=== PATIENT | female | born 1975 | race Caucasian/White ===

== ENCOUNTER 2023-10-06 10:19 | Emergency (ER) | payer SELFPAY ==
[2023-10-06 10:23] VITALS: BP 166/99; PULSE 102; TEMP 36.8; O2SAT 98; BMI 33.7
--- NOTE | 2023-10-06 10:34 | PC.NURSE ---
patient here from [place], states that she has had a rash on her left hand for the past month. has attempted natural remedies with no results. states that the rash is very itchy. rash is circular pattern with vesicals. patient also c/o red rash under bilateral breast.
--- NOTE | 2023-10-06 10:39 | ED_ITS ---
HPI HPI - General Adult General Chief complaint: Skin/Abscess/Foreign Body Stated complaint: SKIN IRRITATION, RASH Time Seen by Provider: 10/06/23 10:32 Source: patient Mode of arrival: walk-in History of Present Illness HPI narrative: The patient presented to us with a rash that been going on at least for the last few months, on her left hand she denies any other concerns, she also mentioned that she have this rash just below her breasts bilaterally, both rashes are itchy Related Data Previous Rx's ?Medication ?Instructions ?Recorded clotrimazole 1 % topical cream 1 applic topical BID #30 grams 10/06/23 Allergies Allergy/AdvReac Type Severity Reaction Status Date / Time Sulfa (Sulfonamide Allergy Unknown hives Verified 10/06/23 10:28 Antibiotics) amoxicillin [From Augmentin] Allergy Hives Verified 10/06/23 10:31 clavulanic acid Allergy Hives Verified 10/06/23 10:31 [From Augmentin] diphenhydramine Allergy Hives Verified 10/06/23 10:31 [From Benadryl] latex Allergy Hives Verified 10/06/23 10:31 silk tape Allergy Rash Uncoded 10/06/23 10:31 Opioid HPI Opioid Management Most Recent Opioid Data: No Data to Display Review of Systems ROS Status of ROS 10 or more systems reviewed and unremark able except as noted in history and below Exam Narrative Exam Narrative: Nurses notes and vital signs reviewed and patient is not hypoxic. General: Well-appearing and in no apparent distress. Skin: Warm, dry, no pallor noted. No rash. Head: Normocephalic, atraumatic. Neck: Supple, non-tender. Eye: Pupils are equal, round and EOMI. No scleral icterus. Ears, Nose, Mouth, and Throat: TM are clear, no nasal mucosal hypertrophy. Oral mucosa is moist, no posterior oropharynx erythema, uvula is mid-line Cardiovascular: Regular Rate and Rhythm without murmur, gallop or rub. Respiratory: No accessory muscle use or respiratory distress. Lungs are clear to auscultation, no wheezing, rales or rhonchi Chest Wall: no tenderness Back: No midline thoracic or lumbar vertebral tenderness. No CVA tenderness Musculoskeletal: normal ROM, no calf or popliteal tenderness, no lower extremity edema/swelling GI: Abdomen is soft, non-distended. Normal bowel sounds. No masses appreciated. No tenderness to palpation. No rebound, guarding, or rigidity noted. Neurological: A&O x4. No cranial nerve dysfunction observed. No truncal ataxia. Moves all extremities. Sensation intact. Psychiatric: Cooperative and interactive. Normal mood and affect. Skin examination showed that the patient have on her left hand almost 2 x 3 cm oval rash that is macular The patient also have mild irritation under the breast bilaterally Constitutional Vital Signs, click to edit/add: Last Vital Signs Temp 98.3 F 10/06/23 10:23 Pulse 102 H 10/06/23 10:23 Resp 16 10/06/23 10:23 BP 166/99 H 10/06/23 10:23 Pulse Ox 98 10/06/23 10:23 O2 Del Method Room Air 10/06/23 10:23 Course Vital Signs Vital signs: Vital Signs Temperature 98.3 F 10/06/23 10:23 Pulse Rate 102 H 10/06/23 10:23 Respiratory Rate 16 10/06/23 10:23 Blood Pressure 166/99 H 10/06/23 10:23 Pulse Oximetry 98 10/06/23 10:23 Oxygen Delivery Method Room Air 10/06/23 10:23 Temperature 98.3 F 10/06/23 10:23 Pulse Rate 102 H 10/06/23 10:23 Respiratory Rate 16 10/06/23 10:23 Blood Pressure 166/99 H 10/06/23 10:23 Pulse Oximetry 98 10/06/23 10:23 Oxygen Delivery Method Room Air 10/06/23 10:23 Medical Decision Making [facility] Narrative Medical decision making narrative: The breast rash mostly secondary to Jessica infection and she will be treated with clotrimazole cream The rash on the hand mostly ringworm and also she will be treated with clotrimazole cream The patient is to follow up with primary care physician in next 2-3 days or to return to the emergency department should any of the signs or symptoms worsen or new symptoms develop. The patient agrees with the following Diagnosis and Treatment plan and the patient will be discharged home. Discharge Plan Discharge Stand Alone Forms: Portal Instructions Chief Complaint: Skin/Abscess/Foreign Body Clinical Impression: Candidal skin infection Patient Disposition: Home, Self-Care Time of Disposition Decision: 10:33 Condition: Good Prescriptions / Home Meds: New clotrimazole 1 % cream 1 applic topical BID Qty: 30 0RF Print Language: Icelandic Instructions: Tinea Corporis (ED), Skin Yeast Infection (ED) Referrals: Physician,Non-Staff, MD [Primary Care Provider] - 1 week
== END 2023-10-06 11:06 | disposition home or self-care (01) ==
PROVIDERS: Emergency Provider Emergency Medicine
DX: B37.2 Candidiasis of skin and nail (principal)
CPT/HCPCS: 99283

== ENCOUNTER 2024-10-19 11:59 | Emergency (ER) | payer SELFPAY ==
[2024-10-19 12:03] VITALS: BP 130/88; PULSE 79; TEMP 36.6; O2SAT 98; BMI 37.2
== END 2024-10-19 16:30 | disposition left against medical advice (07) ==
PROVIDERS: Emergency Provider Emergency Medicine
DX: Z53.21 Procedure and treatment not carried out due to patient leaving prior to being seen by health care provider (principal)

== ENCOUNTER 2024-12-22 08:25 | Outpatient (OUT) | payer MEDICAID, SELFPAY ==
[2024-12-22 09:19] LABS: Hematocrit 36.9 % (36.0-48.0); Hemoglobin 12.7 g/dL (12.0-16.0); Immature Granulocytes Abs Auto 0.01 10^3/uL (0.00-0.03); Immature Granulocytes Pct Auto 0.2 % (0.0-0.5); Lymphocytes Absolute Auto 2.0 10^3/uL (1.2-3.8); Mean Corpuscular HGB Conc 34.4 g/dL (29.9-35.2); Mean Corpuscular Hemoglobin 30.8 pg (26.7-34.0); Mean Corpuscular Volume 89.3 fL (81.0-99.0); Platelet Count 281 10^3/uL (150-450); Red Blood Count 4.13 10^6/uL (4.20-5.40); White Blood Count 5.6 10^3/uL (4.0-11.0)
[2024-12-22 09:46] LABS: Alanine Aminotransferase 24 U/L (14-59); Albumin Globulin Ratio 1.0; Albumin Level 3.6 g/dL (3.4-5.0); Alkaline Phosphatase 87 U/L (46-116); Anion Gap 16.0; Aspartate Amino Transferase 16 U/L (15-37); Blood Urea Nitrogen 17.0 mg/dL (7.0-18.0); Calcium 9.0 mg/dL (8.5-10.1); Carbon Dioxide 22.9 mmol/L (21.0-32.0); Chloride 106 mmol/L (98-107); Cholesterol 147 mg/dL (<=200); Estimated GFR (African America >60 (>=60 mL/min/1.73m^2); Estimated GFR (Non-African Ame >60 (>=60 mL/min/1.73m^2); Globulin 3.6 g/dL; Glucose 112 mg/dL (74-106); HDL Cholesterol 48 mg/dL (40-60); Potassium 3.9 mmol/L (3.5-5.1); Sodium 141 mmol/L (136-145); Total Protein 7.2 g/dL (6.4-8.2); Triglycerides 82 mg/dL (<=150); VLDL CHOLESTEROL 16.4 mg/dL
== END 2024-12-22 08:26 | disposition home or self-care (01) ==
LOC: LAB 08:28
PROVIDERS: PCP Family Medicine; Visit Provider Family Medicine
DX: E78.5 Hyperlipidemia, unspecified (principal); I10 Essential (primary) hypertension
CPT/HCPCS: 36415; 80048; 80061; 80076; 85025